=== PATIENT | female | born 1935 | race Hispanic/Latino ===

== ENCOUNTER → 2022-04-09 09:54 | Outpatient (CLI) | payer OTHER, SELFPAY ==
--- NOTE | 2022-04-09 09:57 | DI.CT.S_ITS ---
PROCEDURE: CT ABDOMEN PELVIS W CON INDICATIONS: Hematochezia TECHNIQUE: After the administration of oral and intravenous contrast, axial sections were acquired from the lung bases to the pubic symphysis. Coronal and sagittal reformats were performed. For radiation dose reduction, the following was used: automated exposure control, adjustment of mA and/or kV according to patient size. COMPARISON:None. FINDINGS: Image quality: Excellent. Lung bases: Unremarkable. Heart: No significant findings. ABDOMEN: Liver: A centrally hypodense, peripherally hypervascular lesion is present within the right hepatic lobe which measures 2.6 x 3.1 cm and is consistent with a hepatic hemangioma. Gallbladder: Unremarkable. Biliary ducts: Unremarkable. Pancreas: Unremarkable. Spleen: Unremarkable. Adrenal Glands: Unremarkable. Kidneys and Ureters: Unremarkable. Stomach and Bowel: Stomach, small bowel loops, and colon are unremarkable. The appendix is not visualized; however there is no discrete right lower quadrant fluid or fat stranding to suggest acute appendicitis. Peritoneum: No abnormal intraperitoneal fluid. No free air. Ventral Wall: No hernia. Abdominal Nodes: No retroperitoneal or mesenteric adenopathy by size criteria. Vessels: Aorta and inferior vena cava are normal in size. There are scattered atheromatous calcifications throughout the aorta and iliac arteries bilaterally. PELVIS: Pelvic Organs: Unremarkable. Bladder: Unremarkable. Pelvic Nodes: No enlarged lymph nodes. Miscellaneous: No inguinal hernias are seen. Bones: Unremarkable. IMPRESSION: 1. No acute intra-abdominal findings. No discrete findings to explain hematochezia. Dictated by: Sobia Hernandez M.D. on 04/09/2022 at 16:04 Approved by: Sobia Hernandez M.D. on 04/09/2022 at 16:08
== END ==
PROVIDERS: PCP Internal Medicine; Referring Provider Surgery; Visit Provider Surgery
DX: K92.1 Melena (principal)
CPT/HCPCS: 74177; Q9967